=== PATIENT | male | born 1985 | race African-American/Black ===

== ENCOUNTER 2017-08-31 21:34 | Emergency (ER) | payer OTHER ==
[~2017-08-31] VITALS: Ht 175.3 cm; Wt 76.2 kg
[2017-08-31] MEDS ORDERED: SPIRONOLACTONE100 MG ORAL (21:57)
[2017-08-31] MEDS ORDERED: GENVOYA TABLET1 EACH PO (21:57)
[2017-08-31] MEDS ORDERED: ESTROGEN (21:57)
[2017-08-31 22:06] VITALS: BP 130/72
[2017-08-31] MEDS ORDERED: KEFLEX500 MG ORAL (22:13)
[2017-08-31 22:18] VITALS: BP 130/72
--- NOTE | 2017-09-01 02:09 | Emergency Room Report ---
History of Present Illness General Chief Complaint: Skin Rash/Abscess Source: Patient Present Illness HPI Patient presents with complaints of redness and discomfort to the left axilla Patient reports she was seen by her primary physician and was given Benadryl Denies any chest pressures of breath Had questionable fever Denies any discharge Patient reports that she has HIV and needs a shot Allergies: Coded Allergies: No Known Allergies (Unverified , 08/31/17) Patient History Past Medical History: see triage record Pertinent Family History: none Reviewed Nursing Documentation: PMH: Agreed, PSxH: Agreed Review of Systems All Other Systems: negative except mentioned in HPI Physical Exam Vital Signs Date Time Temp Pulse Resp B/P (MAP) Pulse Ox O2 Delivery O2 Flow Rate FiO2 08/31/17 21:49 98.6 86 16 130/72 99 Room Air Sp02 EP Interpretation: reviewed, normal General Appearance: well appearing, no apparent distress Head: normocephalic, atraumatic Eyes: bilateral eye PERRL, bilateral eye EOMI ENT: hearing grossly normal, normal pharynx, TMs + canals normal, uvula midline Neck: full range of motion, supple, no meningismus, no bony tend Respiratory: lungs clear, normal breath sounds, no rhonchi, no respiratory distress, no retraction, no accessory muscle use Cardiovascular #1: normal peripheral pulses, regular rate, rhythm, no edema, no gallop, no JVD, no murmur Gastrointestinal: normal bowel sounds, non tender, soft, no mass, no organomegaly, non-distended, no guarding, no hernia, no pulsatile mass, no rebound Genitourinary: no CVA tenderness Musculoskeletal: normal inspection Neurologic: oriented x3, responsive, chair car driver III-XII nml as tested, motor strength/ tone normal, sensory intact Psychiatric: mood/affect normal Skin: other - Mild erythema small folliculitis left axilla, does not appear standing or streaking, Lymphatic: normal inspection, no adenopathy Medical Decision Making Diagnostic Impression: Primary Impression: cellulitis ER Course Patient appears to have a small early sign of cellulitis folliculitis and patient will be placed on oral antibiotics and will have close followup At the time of disposition patient reported that she has HIV and needs a shot I did discuss with her that I did not feel IM injection is appropriate at this time / Last Vital Signs Date Time Temp Pulse Resp B/P (MAP) Pulse Ox O2 Delivery O2 Flow Rate FiO2 08/31/17 21:49 98.6 86 16 130/72 99 Room Air Status: unchanged Disposition: HOME, SELF-CARE Condition: Stable Scripts Cephalexin* (KEFLEX*) 500 Mg Capsule 500 MG ORAL Q8HR, #28 CAP 0 Refills Prov: DARIEL BARDALES D.O. 08/31/17 Referrals: [facility]ERR[facility] (PCP) Patient Instructions: Cellulitis, [id number] Additional Instructions: Patient is provided with the discharge instructions notified to follow up with primary doctor in the next 2-3 days otherwise return to the er with any worsening symptoms. Please note that this report is being documented using [employer] technology. This can lead to erroneous entry secondary to incorrect interpretation by the dictating instrument. DAREIL BARDALES D.O. Sep 01, 2017 02:09
== END 2017-08-31 22:18 | disposition home or self-care (01) ==
LOC: EMR 22:18
DX: L03.112 Cellulitis of left axilla (principal)
CPT/HCPCS: 99283

== ENCOUNTER 2019-06-15 14:27 | Emergency (ER) | payer OTHER ==
[~2019-06-15] VITALS: Ht 172.7 cm; Wt 72.6 kg
[~2019-06-15 14:27] MED LIST: AUGMENTIN 875-1 EAC1 ORAL; BACTRIM DS TAB1 EAC1 ORAL; COLACE100 MG ORAL; ESTROGEN; GENVOYA TABLET1 EACH PO; KEFLEX500 MG ORAL; NORCO 5-325 TA1 EACH ORAL; SPIRONOLACTONE100 MG ORAL
[2019-06-15 14:41] VITALS: BP 119/74
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
[2019-06-15] MEDS ORDERED: Ketorolac 30mg Inj IM ONE (15:30)
--- NOTE | 2019-06-15 15:43 | NUR ---
ED Nurse Note: PT REFUSED PAIN MEDICATION AND ANGELO NOTIFIED.
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
[2019-06-15] MEDS ORDERED: PROMETHAZI6.25 MG/1 ORAL (15:45)
[2019-06-15] MEDS ORDERED: ROBAXIN-500MG ORAL (15:45)
[2019-06-15] MEDS ORDERED: IBU800 MG PO (15:45)
[2019-06-15 15:52] VITALS: BP 125/75
--- NOTE | 2019-06-15 15:52 | NUR ---
ER DISCHARGE NOTE: Patient is cleared to be discharged per PA, pt is aox4, on room air, with stable vital signs. pt was given dc and prescription instructions, pt was able to verbalize understanding, pt id band removed. pt is able to ambulate with steady gait. pt took all belongings.
== END 2019-06-15 15:52 | disposition home or self-care (01) ==
LOC: EMR 15:14
DX: S33.5XXA Sprain of ligaments of lumbar spine, initial encounter (principal); S13.4XXA Sprain of ligaments of cervical spine, initial encounter; J06.9 Acute upper respiratory infection, unspecified; V49.9XXA Car occupant (driver) (passenger) injured in unspecified traffic accident, initial encounter; Y92.410 Unspecified street and highway as the place of occurrence of the external cause
CPT/HCPCS: 99282

== ENCOUNTER → 2019-09-30 | Emergency (ER) | payer OTHER ==
[~2019-09-30] VITALS: Ht 172.7 cm; Wt 74.8 kg
[~2019-09-30] MED LIST changes: +IBU800 MG PO; +PROMETHAZI6.25 MG/1 ORAL; +ROBAXIN-500MG ORAL
[2019-09-30 13:06] VITALS: BP 122/82
--- NOTE | 2019-09-30 14:25 | NUR ---
ED Nurse Note: pt called into ed, pt not present in waiting room
== END | disposition left against medical advice (07) ==
LOC: EMR 13:24
DX: Z53.21 Procedure and treatment not carried out due to patient leaving prior to being seen by health care provider (principal)